=== PATIENT | female | born 1985 | race African-American/Black ===

== ENCOUNTER 2017-01-20 20:49 | Emergency (ER) | payer BC ==
--- NOTE | ~2017-01-20 | CR173 ---
[facility] A Service of [facility] [place] RADIOLOGY TEXT RESULTS PATIENT: CHEPE MUNROE LOCATION: [facility] : 85 UNIT #: [id number] AGE: [address]: Marleny Cash APRN SEX: F ORDER DR: [id number] [id number] [facility]. [place], [place] [address] [id number] E MR#: [id number] #: [id number] NAME: CHEPE MUNROE : 1985 SEX: F STUDY DATE/TIME: 01/20/2017 20:52 UNIT: [facility] ROOM: STUDY DESCRIPTION: CR Knee 3 Views Rt Attending Physician: Marleny Cash A.P.R.N. Ordering Physician: Marleny Cash A.P.R.N. Primary Care Physician: Primary Care Physician No MEDICAL IMAGING REPORT This report is preliminary unless electronic signature is present EXAM Right knee, 3 views COMPARISON None INDICATIONS 31-year-old female with medial and anterior right knee pain for 2 days. No known injury. FINDINGS There is valgus angulation at the knee with lateral joint space narrowing. There is a large marginal osteophyte at the lateral tibial plateau with small marginal osteophyte of the medial femoral condyle. There is a large superior pole enthesophyte of the patella. No evidence of acute fracture. Medial marginal osteophyte of the patella. No acute fracture or osseous erosion. IMPRESSION 1. Premature tricompartmental osteoarthritis of the right knee. There is valgus angulation at the knee, which may be congenital and may be contributing to the osteoarthritis due to abnormal mechanical stresses. 2. No acute fracture, dislocation or suprapatellar effusion. No osseous erosion. Dictated by... Ralph Hart M.D. THIS IS AN ELECTRONICALLY VERIFIED REPORT Ralph Hart M.D. at 01/22/2017 6:[address] [facility]/psc [facility] A Service of [facility] [place] RADIOLOGY TEXT RESULTS PATIENT: CHEPE MUNROE LOCATION: [facility] : 85 UNIT #: [id number] AGE: [address]: Marleny Cash APRN SEX: F ORDER DR: TD: 01/21/2017 04:05 JOB #: [id number] MEDICAL IMAGING REPORT Page 1 of 1 COPY
== END 2017-01-20 22:04 | disposition home or self-care (01) ==
LOC: CFTX 20:49
DX: S83.411A Sprain of medial collateral ligament of right knee, initial encounter (principal); M17.11 Unilateral primary osteoarthritis, right knee; F17.210 Nicotine dependence, cigarettes, uncomplicated; Z88.0 Allergy status to penicillin; W06.XXXA Fall from bed, initial encounter
CPT/HCPCS: 29530; 73562; 99283

== ENCOUNTER 2017-04-15 21:55 | Emergency (ER) | payer BC | END 2017-04-16 01:10 | disposition home or self-care (01) | LOC: CED 21:55 → CFTX 23:21 | DX: I10 Essential (primary) hypertension (principal); H65.91 Unspecified nonsuppurative otitis media, right ear; J30.2 Other seasonal allergic rhinitis; F17.210 Nicotine dependence, cigarettes, uncomplicated; Z90.89 Acquired absence of other organs; Z88.0 Allergy status to penicillin | CPT/HCPCS: 36415; 84703; 96372; 99284; J1885 ==